=== PATIENT | female | born 1985 | race Caucasian/White ===

== ENCOUNTER 2020-05-29 15:52 | Outpatient (REF) | payer OTHER, SELFPAY ==
--- NOTE | 2020-05-29 11:30 | PAPFT_PTH ---
PATIENT: Criselda Kerr LOC: [facility] U#:[id number] AGE/SX: 34/F ROOM: RE05/29/[address]: Niurka Ortiz : 1985 BED: DIS: 05/29/2020 SPEC #: [id number] RECD: 05/29/20 18:11 STATUS: PARAM REEliana #: [id number] LIZA: 05/29/20 11:[address]: Niurka Ortiz DEPT: [facility] Cytology RECD BY: Osiris Nam ENTERED: 05/29/20 18:11 SP TYPE: PAPFT OTHR DR: Apollo Garza Tissues: 1 - CX/ENDOCX FOR PAP SMEARS Procedures: PAP THIN PREP/[facility] Screening HPV DNA PROBE Comments: [id number]
== END 2020-05-29 16:12 ==
LOC: NCHCN 15:52
PROVIDERS: PCP Specialist/Technologist Athletic Trainer; Visit Provider Nurse Practitioner Family
DX: Z12.4 Encounter for screening for malignant neoplasm of cervix (principal); Z11.51 Encounter for screening for human papillomavirus (HPV)
CPT/HCPCS: 88142; 87624

== ENCOUNTER 2020-12-25 14:50 | Outpatient (REF) | payer OTHER, SELFPAY | END 2020-12-25 14:51 | disposition home or self-care (01) | LOC: NCHCN 14:50 | PROVIDERS: PCP Specialist/Technologist Athletic Trainer; Visit Provider Nurse Practitioner Family | DX: J02.9 Acute pharyngitis, unspecified (principal) | CPT/HCPCS: 87070 ==

== ENCOUNTER 2021-06-01 09:13 | Outpatient (REF) | payer OTHER, SELFPAY ==
[2021-06-01 12:59] LABS: HCT 42.2 % (36.0-46.0); HGB 14.4 g/dL (11.2-15.7); MCHC 34.1 % (32.0-36.0); MCV 90.8 fL (80-95); Platelet Count 199 10^3/uL (130-400); RBC 4.65 10^6/uL (3.93-5.22); RDW 11.7 % (11.7-14.6); RDW-SD 38.7 fL; WBC 6.08 10^3/uL (4.4-10.8)
[2021-06-01 13:22] LABS: Hemoglobin A1C 4.9 % (<5.7)
[2021-06-01 13:34] LABS: Calculated LDL 145 mg/dL (<100); Cholesterol 231 mg/dL (<200); HDL Cholesterol 75 mg/dL (40-60); TSH 0.61 uIU/mL (0.36-3.74); Triglyceride 58 mg/dL (<150)
== END 2021-06-01 09:14 | disposition home or self-care (01) ==
LOC: NCHCN 09:13
PROVIDERS: PCP Specialist/Technologist Athletic Trainer; Visit Provider Nurse Practitioner Family
DX: Z00.00 Encounter for general adult medical examination without abnormal findings (principal)
CPT/HCPCS: 80061; 85027; 83036; 84443

== ENCOUNTER 2022-12-30 08:46 | Outpatient (REF) | payer BC, SELFPAY ==
[2022-12-30 15:34] LABS: ALT 20 U/L (14-59); AST 19 U/L (15-37); Albumin 3.9 g/dL (3.4-5.0); Alkaline Phosphatase 50 U/L (46-116); Anion Gap 7.4 mmol/L (3-11); BUN 13 mg/dL (7-18); Bilirubin, Total 0.4 mg/dL (0.2-1.0); CO2 28.6 mmol/L (21.0-32.0); CREATININE 0.7 mg/dL (0.55-1.02); Calcium 9.1 mg/dL (8.5-10.1); Chloride 104 mmol/L (98-107); Estimated GFR 113.46 (mL/min/1.73m2); Glucose 106 mg/dL (74-106); Potassium 3.9 mmol/L (3.5-5.1); Sodium 140 mmol/L (136-145); Total Protein 7.2 g/dL (6.4-8.2)
== END 2022-12-30 08:47 | disposition home or self-care (01) ==
LOC: NCHCN 08:46
PROVIDERS: PCP Specialist/Technologist Athletic Trainer; Visit Provider Nurse Practitioner Family
DX: Z51.81 Encounter for therapeutic drug level monitoring (principal)
CPT/HCPCS: 80053

== ENCOUNTER 2023-06-12 12:20 | Outpatient (REF) | payer BC, SELFPAY ==
[2023-06-12 15:40] LABS: ALT 18 U/L (14-59); AST 15 U/L (15-37); Albumin 4.2 g/dL (3.4-5.0); Alkaline Phosphatase 45 U/L (46-116); Anion Gap 7.8 mmol/L (3-11); BUN 17 mg/dL (7-18); Bilirubin, Total 0.6 mg/dL (0.2-1.0); CO2 26.2 mmol/L (21.0-32.0); CREATININE 0.7 mg/dL (0.55-1.02); Calcium 9.2 mg/dL (8.5-10.1); Calculated LDL 147 mg/dL (<100); Chloride 104 mmol/L (98-107); Cholesterol 226 mg/dL (<200); Estimated GFR 113.46 (mL/min/1.73m2); Glucose 99 mg/dL (74-106); HDL Cholesterol 71 mg/dL (40-60); Sodium 138 mmol/L (136-145); Total Protein 7.8 g/dL (6.4-8.2); Triglyceride 44 mg/dL (<150)
== END 2023-06-12 12:21 | disposition home or self-care (01) ==
LOC: NCHCN 12:20
PROVIDERS: PCP Nurse Practitioner Family; Visit Provider Nurse Practitioner Family
DX: Z00.00 Encounter for general adult medical examination without abnormal findings (principal); Z13.220 Encounter for screening for lipoid disorders; Z83.49 Family history of other endocrine, nutritional and metabolic diseases
CPT/HCPCS: 80053; 80061